=== PATIENT | male | born 1945 | race Caucasian/White ===

== ENCOUNTER 2017-02-15 13:49 | Emergency (ER) | payer MEDICARE ==
[~2017-02-15] VITALS: Ht 165.1 cm; Wt 47.0 kg
[~2017-02-15 13:49] MED LIST: AMLO-218 PO; ASPI-664 PO; DOCU-144 PO; FLEETOIL PR; OMEP40CA3 PO
[2017-02-15 13:50] VITALS: Ht 165.1 cm; Wt 47.0 kg
[2017-02-15 14:45] LABS: ADD SCAN DIFF NO
[2017-02-15 14:47] LABS: BASOPHILS % 0.2 % (0.0-2.0); EOSINOPHILS # 0.1 10^3/ul (0.0-0.5); EOSINOPHILS % 2.8 % (0.0-7.0); HEMATOCRIT 38.6 % (42.0-52.0); HEMOGLOBIN 12.7 g/dl (14.0-18.0); LYMPHOCYTES # 0.9 10^3/ul (0.8-2.9); MEAN CORPUSCULAR HEMOGLOBIN 31.2 pg (29.0-33.0); MEAN CORPUSCULAR HGB CONC 32.9 g/dl (32.0-37.0); MEAN CORPUSCULAR VOLUME 94.8 fl (82.0-101.0); MEAN PLATELET VOLUME 11.7 fl (7.4-10.4); MONOCYTE # 0.6 10^3/ul (0.3-0.9); MONOCYTES % 14.1 % (0.0-11.0); NEUTROPHIL # 2.7 10^3/ul (1.6-7.5); NEUTROPHILS % 61.7 % (39.0-77.0); PLATELET COUNT 160 10^3/UL (140-415); RED BLOOD COUNT 4.07 10^6/ul (4.70-6.10); RED CELL DISTRIBUTION WIDTH 13.4 % (11.5-14.5); WHITE BLOOD COUNT 4.3 10^3/ul (4.8-10.8)
[2017-02-15 15:15] LABS: ALBUMIN 4.9 g/dl (3.3-4.9); ALBUMIN/GLOBULIN RATIO 1.68; BILIRUBIN,INDIRECT 0.4 mg/dl (0-1.1); BILIRUBIN,TOTAL 0.4 mg/dl (0.2-1.3); CALCIUM 9.5 mg/dl (8.4-10.2); CREATININE 1.52 mg/dl (0.61-1.24); TOTAL PROTEIN 7.8 g/dl (6.1-8.1)
[2017-02-15 15:16] LABS: ADD UMIC YES; URINE BILIRUBIN (Dip) 1+ (NEGATIVE); URINE BLOOD (Dip) NEGATIVE (NEGATIVE); URINE COLOR YELLOW (YELLOW); URINE GLUCOSE (Dip) NEGATIVE (NEGATIVE); URINE KETONES (Dip) TRACE (NEGATIVE); URINE LEUKOCYTE ESTERASE (Dip) NEGATIVE (NEGATIVE); URINE NITRITE (Dip) NEGATIVE (NEGATIVE); URINE TOTAL PROTEIN (Dip) 1+ (NEGATIVE); URINE UROBILINOGEN (Dip) 0.2 E.U./dL (0.1-1.0)
[2017-02-15] MEDS ORDERED: ACET500C5 PO (15:40)
[2017-02-15] MEDS ORDERED: BISM262O23 PO (15:40)
--- NOTE | 2017-02-15 15:42 | ERD ---
ER Documentation Chief Complaint Date/Time DATE: 02/15/17 TIME: 15:41 Chief Complaint nausea/vomiting , diarrhea x 3 days HPI Several 1-year-old male presents with vomiting diarrhea. The vomiting was on the first and second day is improved without vomiting today. Complaints of watery diarrhea without blood or mucus. Denies any abdominal pain. Denies any fevers, history of foreign travel or sick contacts. ROS All systems reviewed and are negative except as per history of present illness. Medications Home Meds Active Scripts Bismuth Subsalicylate* (Pepto-Bismol*) 262 Mg/15 Ml Oral.susp, 15 ML PO Q3H Y for DIARRHEA for 4 Days, ML Prov:BRITT JO MD 02/15/17 Acetaminophen* (Tylophen*) 500 Mg Capsule, 1 CAP PO Q6H Y for PAIN AND OR ELEVATED TEMP, #20 CAP Prov:BRITT JO MD 02/15/17 Docusate Sodium* (Colace*) 100 Mg Capsule, 100 MG PO BID, #30 CAP Prov:HARINI MCPHERSON 06/13/15 Mineral Oil* (Fleet* Mineral Oil Enema) 133 Ml Oil, 133 ML NM DAILY Y for CONSTIPATION, #10 ENEMA Prov:HARINI MCPHERSON 06/13/15 Reported Medications Aspirin* (Aspirin* EC) 81 Mg Tablet.dr, 81 MG PO DAILY, TAB 06/13/15 Amlodipine Besylate* (Norvasc*) 10 Mg Tablet, 10 MG PO DAILY, TAB 06/13/15 Omeprazole* (Prilosec*) 40 Mg Capsule.dr, 40 MG PO DAILY 02/20/13 Allergies Allergies: Coded Allergies: No Known Allergies (Verified Allergy, Unknown, 06/13/15) PMhx/Soc History of Surgery: Yes (HERNIA) Anesthesia Reaction: No Hx Neurological Disorder: No Hx Respiratory Disorders: No Hx Cardiac Disorders: Yes (HTN, DM, DEPRESSION) Hx Psychiatric Problems: Yes (DEPRESSION) Hx Miscellaneous Medical Probl: No Hx Alcohol Use: Yes Hx Substance Use: No Hx Tobacco Use: No Smoking Status: Never smoker Physical Exam Vitals Vital Signs Date Time Temp Pulse Resp B/P Pulse Ox O2 Delivery O2 Flow Rate FiO2 02/15/17 13:50 97.5 66 18 116/61 100 Physical Exam Const: [] Alert, [id number]. Head: Atraumatic Eyes: Normal Conjunctiva ENT: Normal External Ears, Nose and Mouth. Neck: Full range of motion..~ No meningismus. Resp: Clear to auscultation bilaterally Cardio: Regular rate and rhythm, no murmurs Abd: Soft, non tender, non distended. Normal bowel sounds Skin: No petechiae or rashes Back: No midline or flank tenderness Ext: No cyanosis, or edema Neur: Awake and alert Psych: Normal Mood and Affect Result Diagram: 02/15/17 1420 02/15/17 1420 Results 24 hrs Laboratory Tests Test 02/15/17 14:20 White Blood Count 4.310^3/ul Red Blood Count 4.0710^6/ul Hemoglobin 12.7g/dl Hematocrit 38.6% Mean Corpuscular Volume 94.8fl Mean Corpuscular Hemoglobin 31.2pg Mean Corpuscular Hemoglobin Concent 32.9g/dl Red Cell Distribution Width 13.4% Platelet Count 32755^3/UL Mean Platelet Volume 11.7fl Neutrophils % 61.7% Lymphocytes % 21.0% Monocytes % 14.1% Eosinophils % 2.8% Basophils % 0.2% Nucleated Red Blood Cells % 0.0/100WBC Neutrophils # 2.710^3/ul Lymphocytes # 0.910^3/ul Monocytes # 0.610^3/ul Eosinophils # 0.110^3/ul Basophils # 0.010^3/ul Nucleated Red Blood Cells # 0.010^3/ul Sodium Level 147mmol/L Potassium Level 4.0mmol/L Chloride Level 110mmol/L Carbon Dioxide Level 28mmol/L Anion Gap 13 Blood Urea Nitrogen 44mg/dl Creatinine 1.52mg/dl Glucose Level 94mg/dl Calcium Level 9.5mg/dl Total Bilirubin 0.4mg/dl Direct Bilirubin 0.00mg/dl Indirect Bilirubin 0.4mg/dl Aspartate Amino Transf (AST/SGOT) 19IU/L Alanine Aminotransferase (ALT/SGPT) 28IU/L Alkaline Phosphatase 59IU/L Total Protein 7.8g/dl Albumin 4.9g/dl Globulin 2.90g/dl Albumin/Globulin Ratio 1.68 Lipase 23U/L Procedures/MDM Patient presents with what appears to be improving vomiting and diarrhea and CBC suggest a viral illness. There is some signs of prerenal insufficiency and patient will be advised to drink clear fluids as since he is tolerating p.o.'s. Patient is advised to follow-up with primary doctor for further evaluation of this week or return for fevers, blood, recurrent vomiting, new worsening symptoms. Otherwise allow 2-3 days for viral illness to resolve. The patient was stable with no new complaints during the ER course. Clinically, there is no current evidence to suggest meningitis, sepsis, acute abdomen, pneumonia, acute coronary syndrome, pulmonary embolism, or any other emergent condition appearing to require further evaluation or hospitalization. The patient should certainly return for any new or worsening symptoms per the aftercare instructions. They should otherwise follow-up with her primary care doctor for reevaluation this week. Departure Diagnosis: Primary Impression: Diarrhea Diarrhea type: unspecified type Qualified Code: R19.7 - Diarrhea, unspecified type Condition: Stable Patient Instructions: Treating Diarrhea Additional Instructions: Labs suggest viral illness which may last 3-5 days. There is signs of mild dehydration. Drink plenty of fluids at home. Recheck with primary doctor return for vomiting, pain, blood, new worsening symptoms. BRITT JO MD Feb 15, 2017 15:42
[2017-02-15 15:55] LABS: ICTOTEST NEGATIVE (NEGATIVE)
[2017-02-15 15:57] LABS: BACTERIA,URINE FEW; MUCUS,URINE MODERATE; TRANSITIONAL EPI CELLS,URINE FEW
== END 2017-02-15 15:51 | disposition home or self-care (01) ==
LOC: FTE 13:49
DX: R19.7 Diarrhea, unspecified (principal); E11.9 Type 2 diabetes mellitus without complications; I10 Essential (primary) hypertension; Z79.82 Long term (current) use of aspirin
CPT/HCPCS: 36415; 80053; 81001; 83690; 85025; 99283

== ENCOUNTER 2017-06-23 12:09 | Emergency (ER) | payer MEDICAID, OTHER ==
[~2017-06-23] VITALS: Ht 160 cm; Wt 58.0 kg
[~2017-06-23 12:09] MED LIST changes: +ACET500C5 PO; +BISM262O23 PO; -FLEETOIL PR; +MINE133E23 PR
[2017-06-23 12:16] VITALS: Ht 160 cm; Wt 58.0 kg
== END 2017-06-23 14:55 | disposition left against medical advice (07) ==
LOC: E/R 12:09
DX: Z53.21 Procedure and treatment not carried out due to patient leaving prior to being seen by health care provider (principal)

== ENCOUNTER 2018-06-25 17:12 | Emergency (ER) | END 2018-06-25 21:28 | disposition home or self-care (01) ==

== ENCOUNTER 2018-06-29 20:11 | Emergency (ER) | END 2018-06-29 21:07 | disposition home or self-care (01) ==